=== PATIENT | female | born 1985 | race Caucasian/White ===

== ENCOUNTER → 2017-01-19 | Day surgery (SDC) | payer OTHER ==
[~2017-01-19] VITALS: Ht 172.7 cm; Wt 80.6 kg
[~2017-01-19] MED LIST: *HYDROmorphone PF 1 MG VIAL PERIprocedural Use ONLY ONE; *morphine SULFATE 8 MG/ML PERIprocedure ONLY ONE; ACETAMINOPHEN 1000 MG/100 ML 100 ML IV ONE; APREPITANT 40 MG CAP ONE; BUPIVACAINE/EPINEPHRINE 0.5% PF 30 ML VIAL INFIL ONE; CHLORHEXIDINE GLUCONATE 2 % 1 PACK (2 CLOTHS) TOPICAL PRN; DO NOT ADM ANY ANTICOAGULANT DRUGS PRN; FAMOTIDINE 20 MG/2 ML VIAL ONE; INSULIN HUMAN REGULAR 1,000 UNITS/10 ML VIAL SQ PRN; LACTATED RINGER'S 1000 ML IV PRN; METOPROLOL TARTRATE 25 MG TAB PO PRN; PERC5TAB12 PO; POVIDONE IODINE 5% (ANTISEPSIS KIT) 4 APPLICATIONS EACH NARE PRN; PROMETHAZINE INJ 25 MG/ML VIAL ONE; SODIUM CHLORID 0.9% 500 ML IV PRN; ceFAZolin 1,000 MG/NS 100 ML IV SCH
--- NOTE | 2017-01-19 14:03 | PD.OP ---
Operative Report Date of Surgery: Jan 19, 2017 Preoperative Diagnosis: (1) Cystocele with rectocele Postoperative Diagnosis: (1) Cystocele with rectocele Procedure: A&P repair and bilateral salpingectomy and IUD removal Anesthesia: general doan Surgeon: Carlos Le Special Events Driver(s): Carlos Dorman MD Jan 19, 2017 14:03
--- NOTE | 2017-01-19 14:10 | HHI.DCPOC ---
Discharge Care Plan Diagnosis: (1) Cystocele with rectocele Report Symptoms to Your Doctor -Temperature above 100.5 degrees -Redness, of incision or excessive or foul smelling drainage -Unusual pain or calf pain -Increased vaginal bleeding -Painful or difficulty urinating -Feelings of extreme sadness or anxiety after 2 weeks Goals to Promote Your Health * To prevent worsening of your condition and complications * To maintain your health at the optimal level Directions to Meet Your Goals Take your medications as prescribed Follow your dietary instruction Follow activity as directed Ensure plenty of rest for recovery Drink fluids for hydration Keep your appointments as scheduled Take your immunizations and boosters as scheduled If your symptoms worsen call your PCP, if no PCP go to Urgent Care Center or Emergency Room Smoking is Dangerous to Your Health. Avoid second hand smoke Call the 24-hour crisis hotline for domestic abuse at Carlos Le MD Jan 19, 2017 14:10
--- NOTE | 2017-01-19 14:13 | HHI.DS ---
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
--- NOTE | 2017-01-19 14:27 | MP ---
cc: LUIS FERNANDO LE M.D. DATE OF SURGERY: 01/19/2017 PROCEDURE Laparoscopic bilateral tubal ligation with salpingectomy, removal of IUD, Mirena type, and anterior and posterior repair. PREOPERATIVE DIAGNOSIS 1. Cystocele. 2. Rectocele. 3. Desires sterilization. POSTOPERATIVE DIAGNOSIS 1. Cystocele. 2. Rectocele. 3. Desires sterilization. SURGEON Dr. Luis Fernando Le. ESTIMATED BLOOD LOSS 200 cc. ANESTHESIA General, Dr. Lozano. PROCEDURE IN DETAIL After informed consent the patient was taken to the operating room where she was placed under general anesthesia, placed in supine position with [facility] stir[facility]ups. The abdomen, perineum and vagina were prepped and draped in normal sterile fashion after adequate anesthesia was assured and timeout was taken, a speculum was placed in the vagina. The cervix was grasped with a single-tooth tenaculum. An acorn uterine manipulator was placed in the cervix. A Fowler catheter was placed to gravity. Gloves were changed. A 5 mm infraumbilical incision was then made, carried sharply in subcutaneous tissue into the abdomen under direct visualization with an optical trocar, and then a suprapubic 8 mm in the left lower quadrant and 5 mm trocars were placed. A salpingectomy was performed on both sides at the patient's request, removing both fallopian tubes entirely. Good hemostasis was achieved along the mesosalpinx using a Harmonic scalpel. All instruments were removed when the IUD was removed along with the acorn uterine manipulator. At this point her legs were flexed backward slightly and an anterior and posterior repair were performed by injecting the cervix anteriorly with Marcaine with epinephrine. We entered the anterior mucosa and dissected the cystocele all the way up to the base of the neck of the urethra. The cystocele was identified. All defects were closed in the fascia and then the mucosa was trimmed and the anterior compartment was closed removing the cystocele. 2-0 Vicryl was used on the fascia and 3-0 Vicryl was used on the mucosa. At this point in the posterior aspect we made a tasha-shaped incision in the posterior peritoneum where a previous episiotomy had been performed. We dissected out the scar tissue and then dissected out the rectocele. At the very top of the rectocele an enterocele was encountered. A pursestring closure of that was performed from the cervix down to the fascia in the posterior wall of the vagina. A good closure was noted without narrowing or shortening of the vagina. At this point the fascia was dissected off the mucosa and the defects were repaired in the posterior fascia. Once this was repaired in an imbricating fashion and strengthened, the mucosa was trimmed once again posteriorly. We then closed with a running locked stitch of 3-0 Vicryl suture. A good closure was noted along with building up the perineal body with a colporrhaphy. The patient tolerated this well. All instruments were removed from the vagina. There was slight oozing coming from our incisions so vaginal packing was applied. The patient's Fowler was left in place but it will be removed today. MD FAIZA Mason/MINO /2:04 PM /2:24 PM
[2017-01-19 16:06] VITALS: BP 95/59; PULSE 59; RESP 20; TEMP 97.1; O2SAT 99
== END | disposition home or self-care (01) ==
LOC: HSDC 08:04
PROVIDERS: ATTEND Obstetrics & Gynecology
DX: N81.10 Cystocele, unspecified (principal); N81.6 Rectocele; Z30.2 Encounter for sterilization
CPT/HCPCS: 86850; 86900; 86901; 88305; J0131; J0690; J1170; J2270; J2550; J7120; J8501